=== PATIENT | male | born 1965 | race Caucasian/White ===

== ENCOUNTER 2019-05-16 16:29 | Emergency (ER) | payer OTHER ==
[~2019-05-16] VITALS: Ht 154.9 cm; Wt 59.0 kg
[~2019-05-16 16:29] MED LIST: SINGULAIR4 MG/PACKE PO; TAGAMET300 MG PO
== END 2019-05-16 22:26 | disposition home or self-care (01) ==
LOC: ER 16:29
DX: K29.70 Gastritis, unspecified, without bleeding (principal)